=== PATIENT | female | born 1965 | race Caucasian/White ===

== ENCOUNTER → 2017-01-04 | Outpatient (CLI) | payer OTHER | LOC: FIMAGING 13:50 | PROVIDERS: ATTEND Obstetrics & Gynecology | DX: Z12.31 Encounter for screening mammogram for malignant neoplasm of breast (principal) | CPT/HCPCS: G0202 ==

== ENCOUNTER → 2018-07-14 | Outpatient (CLI) | payer OTHER | LOC: FIMAGING 16:15 | PROVIDERS: ATTEND Family Medicine | DX: Z12.31 Encounter for screening mammogram for malignant neoplasm of breast (principal) ==

== ENCOUNTER → 2018-10-09 | Outpatient (CLI) | payer OTHER | LOC: FIMAGING 10:25 | PROVIDERS: ATTEND Otolaryngology | DX: R22.0 Localized swelling, mass and lump, head (principal) ==